=== PATIENT | female | born 1955 | race Hispanic/Latino ===

== ENCOUNTER 2019-02-02 02:00 | Emergency (ER) | payer OTHER ==
--- OUTSIDE RECORDS SUMMARY | 2019-02-02 02:02 | XMS REPORT ---
:1955 Author Organization eClinicalWorks Care Team Providers Name Role Phone Vania Rosado Provider Role Unavailable Allergies, Adverse Reactions, Alerts Substance Reaction Event Type N.K.D.A. Info Not Available Non Drug Allergy Problems Problem Type Condition Code Onset Dates Condition Status Problem Acquired hypothyroidism E03.9 Active Problem Essential hypertension I10 Active Assessment Encounter for general adult medical Z00.00 Active examination without abnormal findings Medications Medication Code Code Instructions Start End Status Dosage System Date Date Levothyroxine [facility] 77266972620 50 MCG Orally Active 1 tablet Sodium Once a day on an empty stomach in the morning Lisinopril [facility] 54116678002 2.5 MG Orally January 22, Active 1 tablet Once a day 2017 Results No Known Results Summary Purpose eClinicalWorks Submission
--- OUTSIDE RECORDS SUMMARY | 2019-02-02 02:02 | XMS REPORT ---
:1955 Author Organization eClinicalWorks Care Team Providers Name Role Phone Vania Rosado Provider Role Unavailable Allergies, Adverse Reactions, Alerts Substance Reaction Event Type N.K.D.A. Info Not Available Non Drug Allergy Problems Problem Type Condition Code Onset Dates Condition Status Problem Hypertension, unspecified type I10 Active Problem Essential hypertension I10 Active Problem Fatty liver K76.0 Active Assessment Essential hypertension I10 Active Assessment Fatty liver K76.0 Active Problem Acquired hypothyroidism E03.9 Active Medications Medication Code Code Instructions Start End Status Dosage System Date Date Levothyroxine [facility] 40314153693 50 MCG Orally Active 1 tablet Sodium Once a day on an empty stomach in the morning Olmesartan [facility] 62432695357 40 MG Orally Sep 23, Active 1 tablet Medoxomil Once a day 2018 Results No Known Results Summary Purpose eClinicalWorks Submission
--- OUTSIDE RECORDS SUMMARY | 2019-02-02 02:02 | XMS REPORT ---
:1955 Author Organization eClinicalWorks Care Team Providers Name Role Phone Vania Rosado Provider Role Unavailable Allergies, Adverse Reactions, Alerts Substance Reaction Event Type N.K.D.A. Info Not Available Non Drug Allergy Problems Problem Type Condition Code Onset Dates Condition Status Problem Acquired hypothyroidism E03.9 Active Problem Essential hypertension I10 Active Assessment Essential hypertension I10 Active Assessment Acquired hypothyroidism E03.9 Active Medications Medication Code Code Instructions Start End Status Dosage System Date Date Lisinopril [facility] 82614683622 2.5 MG Orally Inactive 1 tablet Once a day Olmesartan [place] 68389894294 20 MG Orally Sep 23, Active 1 tablet Medoxomil Once a day 2018 Levothyroxine [facility] 63109388260 50 MCG Orally Active 1 tablet Sodium Once a day on an empty stomach in the morning Results No Known Results Summary Purpose eClinicalWorks Submission
--- OUTSIDE RECORDS SUMMARY | 2019-02-02 02:02 | XMS REPORT ---
:1955 Author Organization eClinicalWorks Care Team Providers Name Role Phone Vania Rosado Provider Role Unavailable Allergies No Known Allergies Problems Problem Type Condition Code Onset Dates Condition Status Problem Acquired hypothyroidism E03.9 Active Problem Essential hypertension I10 Active Medications Medication Code Code Instructions Start End Status Dosage System Date Date Levothyroxine [facility] 12673515089 50 MCG Orally Active 1 tablet Sodium Once a day on an empty stomach in the morning Results No Known Results Summary Purpose eClinicalWorks Submission
--- OUTSIDE RECORDS SUMMARY | 2019-02-02 02:02 | XMS REPORT ---
:1955 Author Organization eClinicalWorks Care Team Providers Name Role Phone Vania Rosado Provider Role Unavailable Allergies, Adverse Reactions, Alerts Substance Reaction Event Type N.K.D.A. Info Not Available Non Drug Allergy Problems Problem Type Condition Code Onset Dates Condition Status Problem Acquired hypothyroidism E03.9 Active Problem Essential hypertension I10 Active Assessment Acquired hypothyroidism E03.9 Active Assessment Essential hypertension I10 Active Medications Medication Code Code Instructions Start End Status Dosage System Date Date Levothyroxine [facility] 55955501899 25 MCG Orally December 24, Active 1 tablet Sodium Once a day 2017 on an empty stomach in the morning Lisinopril ND 03387415084 2.5 MG Orally January 22, Active 1 tablet Once a day 2017 Results No Known Results Summary Purpose eClinicalWorks Submission
--- OUTSIDE RECORDS SUMMARY | 2019-02-02 02:02 | XMS REPORT ---
:1955 Author Organization eClinicalWorks Care Team Providers Name Role Phone Vania Rosado Provider Role Unavailable Allergies, Adverse Reactions, Alerts Substance Reaction Event Type N.K.D.A. Info Not Available Non Drug Allergy Problems Problem Type Condition Code Onset Dates Condition Status Assessment Other constipation K59.09 Active Assessment Hypertension, unspecified type I10 Active Assessment Acquired hypothyroidism E03.9 Active Assessment Need for hepatitis C screening test Z11.59 Active Problem Other constipation K59.09 Active Problem Hypertension, unspecified type I10 Active Problem Need for hepatitis C screening test Z11.59 Active Problem Acquired hypothyroidism E03.9 Active Problem Fatty liver K76.0 Active Problem Essential hypertension I10 Active Medications Medication Code Code Instructions Start End Status Dosage System Date Date Levothyroxine [facility] 23248719254 50 MCG Orally Active 1 tablet Sodium Once a day on an empty stomach in the morning Olmesartan [facility] 37316218625 40-12.5 MG November Active 1 tablet Medoxomil-HCTZ Orally Once a 2018 day Olmesartan [facility] 37253880119 40 MG Orally Sep 23, Active 1 tablet Medoxomil Once a day 2018 Results No Known Results Summary Purpose eClinicalWorks Submission
--- OUTSIDE RECORDS SUMMARY | 2019-02-02 02:02 | XMS REPORT ---
:1955 Author Organization eClinicalWorks Care Team Providers Name Role Phone Vania Rosado Provider Role Unavailable Allergies No Known Allergies Problems Problem Type Condition Code Onset Dates Condition Status Problem Acquired hypothyroidism E03.9 Active Problem Essential hypertension I10 Active Medications No Known Medications Results No Known Results Summary Purpose eClinicalWorks Submission
--- OUTSIDE RECORDS SUMMARY | 2019-02-02 02:03 | XMS REPORT ---
:1955 Author Organization eClinicalWorks Care Team Providers Name Role Phone Vania Rosado Provider Role Unavailable Allergies, Adverse Reactions, Alerts Substance Reaction Event Type N.K.D.A. Info Not Available Non Drug Allergy Problems Problem Type Condition Code Onset Dates Condition Status Assessment Acquired hypothyroidism E03.9 Active Assessment Hypertension, unspecified type I10 Active Assessment Reactive depression F32.9 Active Problem Other constipation K59.09 Active Problem Need for hepatitis C screening test Z11.59 Active Problem Reactive depression F32.9 Active Problem Essential hypertension I10 Active Problem Acquired hypothyroidism E03.9 Active Problem Fatty liver K76.0 Active Problem Hypertension, unspecified type I10 Active Medications Medication Code Code Instructions Start End Status Dosage System Date Date Sertraline HCl [facility] 81383173528 25 MG Orally January 20, Active 1 tablet Once a day 2018 Levothyroxine [facility] 86486529447 50 MCG Orally Active 1 tablet Sodium Once a day on an empty stomach in the morning Olmesartan [facility] 62668969623 40-12.5 MG Active 1 tablet Medoxomil-HCTZ Orally Once a day Results No Known Results Summary Purpose eClinicalWorks Submission
[2019-02-02 02:38] LABS: Absolute Lymphocytes (CBC) 2.9 K/uL (0.7-4.9); Basophils % 1.3 % (0-1.3); Eosinophils % 3.4 % (0-4.4); Hematocrit 38.4 % (36.0-45.0); MPV 8.8 fL (7.6-11.3); Monocytes % 5.7 % (3.3-12.3); RBC Red Blood Cell Count 4.24 M/uL (3.86-4.86)
[2019-02-02] MEDS ORDERED: ONDANSETRON 4 MG/2 ML VIAL ONE (02:44)
[2019-02-02 03:03] LABS: Potassium 3.6 mmol/L (3.5-5.1)
[2019-02-02] MEDS ORDERED: predniSONE 20 MG TAB ONE (03:38)
--- NOTE | 2019-02-02 03:51 | EDPHYS ---
Physician Documentation [facility] Name: Macey Shah Age: 63 yrs Sex: Female : 1955 Arrival Date: 02/02/2019 Time: 02:05 Bed 6 Private MD: ED Physician Wally Barth HPI: 02/02 04:07 This 63 yrs old Female presents to ER via Ambulatory with complaints of Rash. gs 04:07 The patient's rash thought to be caused by an unknown cause. The rash is located on the gs right leg and left leg. The rash can be described as macular, PETICHIAL. Onset: The symptoms/episode began/occurred 2 week(s) ago, and became worse. Associated signs and symptoms: Pertinent negatives: fever. Severity of symptoms: At their worst the symptoms were moderate in the emergency department the symptoms are unchanged. The patient has not experienced similar symptoms in the past. Historical: - Allergies: 02:37 No Known Allergies; bb - Home Meds: 02:37 olmesartan oral oral [Active]; thyroid med [Active]; bb - PMHx: 02:24 Hypertension; Hypothyroidism; bb - PSHx: 02:24 Hysterectomy; cyst removal from back; bb - Immunization history:: Adult Immunizations up to date. - Social history:: Smoking status: Patient/guardian denies using tobacco. - Ebola Screening: : No symptoms or risks identified at this time. ROS: 04:07 All other systems are negative. gs Exam: 04:07 Head/Face: Normocephalic, atraumatic. Eyes: Pupils equal round and reactive to light, gs extra-ocular motions intact. Lids and lashes normal. Conjunctiva and sclera are non-icteric and not injected. Cornea within normal limits. Periorbital areas with no swelling, redness, or edema. ENT: Nares patent. No nasal discharge, no septal abnormalities noted. Tympanic membranes are normal and external auditory canals are clear. Oropharynx with no redness, swelling, or masses, exudates, or evidence of obstruction, uvula midline. Mucous membranes moist. Neck: Trachea midline, no thyromegaly or masses palpated, and no cervical lymphadenopathy. Supple, full range of motion without nuchal rigidity, or vertebral point tenderness. No Meningismus. Chest/axilla: Normal chest wall appearance and motion. Nontender with no deformity. No lesions are appreciated. Cardiovascular: Regular rate and rhythm with a normal S1 and S2. No gallops, murmurs, or rubs. Normal PMI, no JVD. No pulse deficits. Respiratory: Lungs have equal breath sounds bilaterally, clear to auscultation and percussion. No rales, rhonchi or wheezes noted. No increased work of breathing, no retractions or nasal flaring. Abdomen/GI: Soft, non-tender, with normal bowel sounds. No distension or tympany. No guarding or rebound. No evidence of tenderness throughout. Back: No spinal tenderness. No costovertebral tenderness. Full range of motion. Neuro: Awake and alert, GCS 15, oriented to person, place, time, and situation. Cranial nerves II-XII grossly intact. Motor strength 5/5 in all extremities. Sensory grossly intact. Cerebellar exam normal. Normal gait. 04:07 Constitutional: The patient appears alert, awake. 04:07 Musculoskeletal/extremity: Pulses: are normal with no appreciated deficits, Sensation intact. 04:07 Skin: rash a moderate rash is noted, rash can be described as macular, PETICHIAL. Vital Signs: 02:24 BP 169 / 95; Pulse 69; Resp 18 S; Temp 98(O); Pulse Ox 96% on R/A; Weight 82.1 kg (R); bb Height 5 ft. 4 in. (162.56 cm) (R); Pain 0/10; 03:09 BP 161 / 87; Pulse 58; Resp 13; Pulse Ox 96% on R/A; tl2 04:16 BP 153 / 78; Pulse 55; Resp 13; Pulse Ox 95% on R/A; tl2 02:24 Body Mass Index 31.07 (82.10 kg, 162.56 cm) bb MDM: 02:15 Patient medically screened. gs 04:07 Differential diagnosis: VASCULITIS,ITP,TTP,DRUG RASH,NOT RMSF. Data reviewed: vital gs signs, nurses notes, lab test result(s). Counseling: I had a detailed discussion with the patient and/or guardian regarding: the historical points, exam findings, and any diagnostic results supporting the discharge/admit diagnosis, lab results, the need for outpatient follow up. Response to treatment: the patient's symptoms have mildly improved after treatment, and as a result, I will discharge patient. 02/02 02:17 Order name: CBC with Diff; Complete Time: 03:09 02/02 02:17 Order name: Basic Metabolic Panel; Complete Time: 03:09 02/02 02:22 Order name: EKG - Nurse/Tech; Complete Time: 02:31 Administered Medications: 02:33 Drug: Zofran 4 mg Route: IVP; Site: right antecubital; tl2 03:30 Follow up: Response: No adverse reaction; Nausea is decreased tl2 03:27 Drug: predniSONE 40 mg Route: PO; tl2 04:18 Follow up: Response: No adverse reaction tl2 04:07 CANCELLED (Physician Discretion): NS 0.9% 1000 ml IV at 1 bolus Per protocol; 1000 mL tl2 bolus Disposition: 02/02/19 03:50 Discharged to Home. Impression: Rash and other nonspecific skin eruption. - Condition is Stable. - Discharge Instructions: Rash, [id number]. - Prescriptions for Prednisone 20 mg Oral Tablet - take 1 tablet by ORAL route once daily for 5 days; 5 tablet. - Medication Reconciliation Form, Thank You Letter, Antibiotic Education, Prescription Opioid Use form. - Follow up: Private Physician; When: 1 - 2 days; Reason: Re-evaluation by your physician. Follow up: Jourdan Koroma MD; When: 2 - 3 days; Reason: Re-evaluation by your physician. Signatures: Dispatcher [employer] EDMS Nirali Narvaez RN RN bb Knox, Taylor, RN RN 2 Wally Barth MD MD Corrections: (The following items were deleted from the chart) 02:37 02:24 Allergies: No Known Allergies; bb bb 02:37 02:24 Home Meds: Unable to obtain; bb 04:07 04:01 NS 0.9% 1000 ml IV at 1 bolus Per protocol; 1000 mL bolus ordered. tl2 04:07 04:07 NS 0.9% 1000 ml IV at 1 bolus Per protocol; 1000 mL bolus ordered. tl2 tl2 04:17 04:07 Skin: rash can be described as gs gs 04:18 03:50 02/02/2019 03:50 Discharged to Home. Impression: Rash and other nonspecific skin tl2 eruption. Condition is Stable. Forms are Medication Reconciliation Form, Thank You Letter, Antibiotic Education, Prescription Opioid Use. Follow up: Private Physician; When: 1 - 2 days; Reason: Re-evaluation by your physician. Follow up: Jourdan Koroma; When: 2 - 3 days; Reason: Re-evaluation by your physician. gs
--- NOTE | 2019-02-02 03:51 | ER ---
Nurse's Notes [facility] Name: Macey Shah Age: 63 yrs Sex: Female : 1955 Arrival Date: 02/02/2019 Time: 02:05 Bed 6 Private MD: Diagnosis: Rash and other nonspecific skin eruption Presentation: 02/02 02:20 Presenting complaint: Patient states: she had a rash on her feet which started approx 2 bb weeks ago she thought it was poison sherine and has been using a poison sherine scrub along with Benadryl but now the rash has spread up her legs. Tonight on the way to the ED she started having tingling in her left arm and her throat is feeling scratchy and she feels nauseous. Transition of care: patient was not received from another setting of care. Onset of symptoms was February 02, 2019. Risk Assessment: Do you want to hurt yourself or someone else? Patient reports no desire to harm self or others. Initial Sepsis Screen: Does the patient meet any 2 criteria? No. Patient's initial sepsis screen is negative. Does the patient have a suspected source of infection? No. Patient's initial sepsis screen is negative. Care prior to arrival: None. 02:20 Method Of Arrival: Ambulatory bb 02:20 Acuity: IBETH 3 bb Historical: - Allergies: 02:37 No Known Allergies; bb - Home Meds: 02:37 olmesartan oral oral [Active]; thyroid med [Active]; bb - PMHx: 02:24 Hypertension; Hypothyroidism; bb - PSHx: 02:24 Hysterectomy; cyst removal from back; bb - Immunization history:: Adult Immunizations up to date. - Social history:: Smoking status: Patient/guardian denies using tobacco. - Ebola Screening: : No symptoms or risks identified at this time. Screenin:31 Abuse screen: Denies threats or abuse. Nutritional screening: No deficits noted. tl2 Tuberculosis screening: No symptoms or risk factors identified. Fall Risk None identified. Assessment: 02:31 General: Appears in no apparent distress. uncomfortable, Behavior is cooperative, tl2 appropriate for age, anxious. General: Behavior is. Pain: Denies pain. Neuro: Level of Consciousness is awake, alert, obeys commands, Oriented to person, place, time, situation. Cardiovascular: Denies chest pain. Respiratory: Airway is patent Respiratory effort is even, unlabored, Respiratory pattern is regular, symmetrical. GI: Reports nausea. : No signs and/or symptoms were reported regarding the genitourinary system. Derm: Rash noted that is red, flat red spots, possibly vascular. 04:16 Reassessment: Patient appears in no apparent distress at this time. Patient and/or tl2 family updated on plan of care and expected duration. Pain level reassessed. Patient is alert, oriented x 3, equal unlabored respirations, skin warm/dry/pink. pt verbalized understanding of discharge instructions, need for follow up and prescription usage Patient states feeling better. Vital Signs: 02:24 BP 169 / 95; Pulse 69; Resp 18 S; Temp 98(O); Pulse Ox 96% on R/A; Weight 82.1 kg (R); bb Height 5 ft. 4 in. (162.56 cm) (R); Pain 0/10; 03:09 BP 161 / 87; Pulse 58; Resp 13; Pulse Ox 96% on R/A; tl2 04:16 BP 153 / 78; Pulse 55; Resp 13; Pulse Ox 95% on R/A; tl2 02:24 Body Mass Index 31.07 (82.10 kg, 162.56 cm) ED Course: 02:05 Patient arrived in ED. do 02:06 Wlaly Barth MD is Attending Physician. 02:23 Triage completed. bb 02:23 Dejuan Skinner, RN is Primary Nurse. la1 02:24 Arm band placed on Patient placed in an exam room, on a stretcher, on pulse oximetry. bb Family accompanied patient. 02:31 Patient has correct armband on for positive identification. Bed in low position. Call tl2 light in reach. Side rails up X 1. Adult w/ patient. 02:31 CBC with Diff Sent. tl2 02:31 Basic Metabolic Panel Sent. tl2 02:31 Initial lab(s) drawn, by me, sent to lab. Inserted saline lock: 22 gauge in right tl2 antecubital area, using aseptic technique. Blood collected. 02:31 EKG done, by residential gas heat technician. reviewed by Wally Barth MD. tl2 03:43 Primary Nurse role handed off by Dejuan Skinner, AUGUSTINE tl2 03:43 Gongora, Dotty, RN is Primary Nurse. tl2 03:49 Jourdan Koroma MD is Referral Physician. gs 04:16 No provider procedures requiring assistance completed. IV discontinued, intact, tl2 bleeding controlled, No redness/swelling at site. Pressure dressing applied. Administered Medications: 02:33 Drug: Zofran 4 mg Route: IVP; Site: right antecubital; tl2 03:30 Follow up: Response: No adverse reaction; Nausea is decreased tl2 03:27 Drug: predniSONE 40 mg Route: PO; tl2 04:18 Follow up: Response: No adverse reaction tl2 04:07 CANCELLED (Physician Discretion): NS 0.9% 1000 ml IV at 1 bolus Per protocol; 1000 mL tl2 bolus Outcome: 03:50 Discharge ordered by . gs 04:16 Discharged to home ambulatory, with family. tl2 04:16 Condition: stable 04:16 Discharge instructions given to patient, Instructed on discharge instructions, follow up and referral plans. medication usage, Demonstrated understanding of instructions, follow-up care, medications, Prescriptions given X 1. 04:18 Patient left the ED. tl2 Signatures: Nirali Narvaez RN RN Dejuan Wheat RN RN la1 April Landon Taylor, RN RN tl2 Wally Barth MD MD Corrections: (The following items were deleted from the chart) 02:37 02:24 Allergies: No Known Allergies; tori valle 02:37 02:24 Home Meds: Unable to obtain; tori valle
[2019-02-02] MEDS ORDERED: NA CHLORIDE 0.9% 1,000 ML ONE (04:21)
--- NOTE | 2019-02-02 19:44 | EKG ---
Test Date: 2019-02-02 Test Time: 02:31:10 Toxicology Supervisor: GABRILE MEASUREMENT RESULTS: Intervals: Rate: 59 [place]: 188 QRSD: 86 QT: 448 QTc: 443 [place]: P: 28 [place]: 188 QRS: -5 T: -62 INTERPRETIVE STATEMENTS: Sinus bradycardia Nonspecific ST and T wave abnormality Abnormal ECG Compared to ECG 01/12/2016 08:20:14 ST (T wave) deviation now present Sinus rhythm no longer present T-wave abnormality no longer present Possible ischemia no longer present Electronically Signed On 02-02-19 19:40:39 CDT by Eugene Guajardo
== END 2019-02-02 04:18 | disposition home or self-care (01) ==
LOC: ER 02:00
DX: R21 Rash and other nonspecific skin eruption (principal); I10 Essential (primary) hypertension; E03.9 Hypothyroidism, unspecified
CPT/HCPCS: 36415; 80048; 85025; 93005; 96374; 99284; J2405; J7030; J7512

== ENCOUNTER 2024-06-25 11:52 | Inpatient (IN) | payer OTHER ==
[2024-06-25] MEDS ORDERED: ONDANSETRON 4 MG/2 ML VIAL ONE (12:06)
[2024-06-25] MEDS ORDERED: MORPHINE 2 MG/ML SYR ONE ×3 (12:06→16:33)
[2024-06-25] MEDS ORDERED: NA CHLORIDE 0.9% 1,000 ML ONE ×3 (12:06→20:02)
[2024-06-25 12:26] LABS: Absolute Eosinophils 0.3 K/uL (0-0.5); Absolute Lymphocytes (CBC) 2.8 K/uL (0.7-4.9); Absolute Monocytes 0.5 K/uL (0.1-1.3); Absolute Neutrophil 7.3 K/uL (1.8-8.0); Basophils % 0.3 % (0-1.3); Eosinophils % 2.4 % (0-4.4); Hematocrit 43.5 % (36.0-45.0); Hemoglobin 14.5 g/dL (12.0-15.0); Lymphocytes % 25.3 % (15.3-44.8); MCH 30.4 pg (27.0-35.0); MCHC 33.3 g/dL (32.0-36.0); MCV 91.4 fL (80-100); MPV 8.6 fL (7.6-11.3); Monocytes % 4.5 % (3.3-12.3); Neutrophils % 67.5 % (41.7-73.7); Platelets 296 thou/uL (152-406); RBC Red Blood Cell Count 4.76 M/uL (3.86-4.86); Red Cell Distribution Width 13.8 % (12.1-15.2)
[2024-06-25 12:42] LABS: Albumin 3.7 g/dL (3.4-5.0); Albumin/Globulin Ratio 0.9 (1.1-1.8); Anion Gap 9.3 mEq/L (5.0-15.0); Bilirubin Total 0.7 mg/dL (0.2-1.0); Globulin 4.2 g/dL (2.3-3.5); Potassium 3.3 mEq/L (3.5-5.1); Protein, Total 7.9 g/dL (6.4-8.2)
[2024-06-25] MEDS ORDERED: POTASSIUM 25 MEQ EFFERV TAB ONE (13:46)
[2024-06-25] MEDS ORDERED: CIPROFLOXACIN 400mg IV 400 MG/200 ML BAG IV ONE (13:47)
[2024-06-25 13:50] LABS: Specific Gravity 1.005 (1.005-1.030); Sqamous Epithelial <5 /HPF (None Seen); Urine Bacteria <20 /HPF (<20); Urine Bilirubin NEGATIVE (Negative); Urine Blood Negative (Negative); Urine Clarity Turbid (Clear); Urine Color Colorless (Yellow); Urine Culture Reflex Order NOT NEEDED; Urine Glucose NEGATIVE (Negative); Urine Ketones NEGATIVE (Negative); Urine Microscopic Reflex YN ORDER UMIC; Urine Nitrite NEGATIVE (Negative); Urine Protein NEGATIVE (Negative); Urine RBC None Seen /HPF (None Seen); Urine Urobilinogen Normal (Normal); Urine WBC <5 /HPF (<5); Urine pH 6.5 (5.0-7.0)
--- NOTE | 2024-06-25 13:51 | RAD REPORT ---
EXAMINATION: CT ABDOMEN AND PELVIS WITH CONTRAST CLINICAL INDICATION: ABD PAIN TECHNIQUE: CT abdomen and pelvis was performed, after the administration of IV contrast, as per [facility] protocol. Axial, sagittal and coronal reconstructions were obtained. One or more of the following dose reduction techniques were used: Automated exposure control, adjustment of the mA and k V according to patient size, and iterative reconstruction. Unless otherwise specified, incidental findings do not require dedicated imaging follow-up. COMPARISON: No prior exam. FINDINGS: LOWER CHEST: The visualized lung bases are clear. LIVER: Mild fatty liver is present. No focal lesion or biliary dilatation is seen. Cholelithiasis. SPLEEN: Normal size. No focal lesion. PANCREAS: No mass, ductal dilation, or kriss-pancreatic fluid. ADRENALS: Normal; no mass. KIDNEYS: Normal size and contour. No hydronephrosis. GASTROINTESTINAL TRACT: No evidence of free air, significant intra-abdominal free fluid, bowel obstru ction or abscess. There is a moderately thickened appearance particularly to the terminal ileum. Small lymph node is seen in the region. Mild free fluid also seen in the right lower quadrant. Sigmoi d diverticulosis coli is present APPENDIX: Normal appendix. LYMPH NODES: No lymphadenopathy. MUSCULOSKELETAL: No acute or suspicious osseous abnormality. ADDITIONAL FINDINGS: Small amount of pelvic free fluid. IMPRESSION: There is a moderately thickened and inflamed appearance to the ileum including the terminal ileum. Th is most likely represents enteritis or inflammatory bowel disease. Sigmoid diverticulosis coli without diverticulitis. Mild free fluid in the pelvis. Cholelithiasis.
--- NOTE | 2024-06-25 14:10 | ER ---
Nurse's Notes [facility] Name: Macey Shah Age: 69 yrs Sex: Female : 1955 Arrival Date: 06/25/2024 Time: 11:52 Bed 7 Private MD: Diagnosis: Other viral enteritis-ILEUM , CECUM;Abdominal tenderness;Diarrhea, unspecified Presentation: 06/25 12:06 Chief complaint: Patient states: diarrhea since Saturday. Today abdominal cramping has tm6 worsened, 10/10 pain. Also with nausea, no vomiting. Coronavirus screen: Client denies travel out of the [place] in the last 14 days. Ebola Screen: Patient negative for fever greater than or equal to 101.5 degrees Fahrenheit, and additional compatible Ebola Virus Disease symptoms Patient denies exposure to infectious person. Patient denies travel to an Ebola-affected area in the 21 days before illness onset. No symptoms or risks identified at this time. Initial Sepsis Screen: Does the patient meet any 2 criteria? No. Patient's initial sepsis screen is negative. Does the patient have a suspected source of infection? No. Patient's initial sepsis screen is negative. Risk Assessment: Do you want to hurt yourself or someone else? Patient reports no desire to harm self or others. Onset of symptoms was June 23, 2024. 12:06 Method Of Arrival: Ambulatory tm6 12:06 Acuity: IBETH 3 tm6 Triage Assessment: 12:09 General: Appears uncomfortable, Behavior is calm, cooperative. Pain: Complains of pain tm6 in abdomen Pain currently is 10 out of 10 on a pain scale. Quality of pain is described as crampy, Pain began 2-3 days ago. EENT: No signs and/or symptoms were reported regarding the EENT system. Neuro: Level of Consciousness is awake, alert, obeys commands, Oriented to person, place, time, situation. Cardiovascular: Patient's skin is warm and dry. Respiratory: Airway is patent Respiratory effort is even, unlabored, Respiratory pattern is regular, symmetrical. GI: Abdomen is flat, non-distended, Reports lower abdominal pain, upper abdominal pain, cramping, diarrhea. : No signs and/or symptoms were reported regarding the genitourinary system. Derm: No signs and/or symptoms reported regarding the dermatologic system. Musculoskeletal: No signs and/or symptoms reported regarding the musculoskeletal system. Historical: - Allergies: 12:09 No Known Allergies; tm6 - PMHx: 12:09 Hypertension; Hypothyroidism; tm6 - PSHx: 12:09 Total abdominal hysterectomy; tm6 - Immunization history:: Client reports receiving the 2nd dose of the Covid vaccine. - Infectious Disease History:: Denies. - Social history:: Smoking status: Patient denies any tobacco usage or history of. Screenin:22 [facility] ED Fall Risk Assessment (Adult) History of falling in the last 3 months, ph including since admission No falls in past 3 months (0 pts) Confusion or Disorientation No (0 pts) Intoxicated or Sedated No (0 pts) Impaired Gait No (0 pts) Mobility Assist Device Used No (0 pt) Altered Elimination No (0 pt) Score/Fall Risk Level 0 - 2 = Low Risk Oriented to surroundings, Maintained a safe environment, Hourly rounding (assess needs \T\ fall precautionary measures) done. Abuse screen: Denies threats or abuse. Denies injuries from another. Nutritional screening: No deficits noted. Tuberculosis screening: No symptoms or risk factors identified. Assessment: 12:21 General: Appears in no apparent distress. uncomfortable, well groomed, Behavior is ph calm, cooperative, appropriate for age. Pain: Complains of pain in abdomen. Neuro: Level of Consciousness is awake, alert, obeys commands, Oriented to person, place, time, situation. Cardiovascular: Capillary refill < 3 seconds in bilateral fingers Patient's skin is warm and dry. Respiratory: Airway is patent Respiratory effort is even, unlabored, Respiratory pattern is regular, symmetrical. GI: Reports lower abdominal pain, upper abdominal pain, diarrhea, nausea. : No signs and/or symptoms were reported regarding the genitourinary system. Derm: Skin is pink, warm \T\ dry. 14:49 Reassessment: Patient appears in no apparent distress at this time. Patient and/or ph family updated on plan of care and expected duration. Pain level reassessed. Patient is alert, oriented x 3, equal unlabored respirations, skin warm/dry/pink. Vital Signs: 12:06 BP 165 / 87; Pulse 77; Resp 19; Temp 97.8(O); Pulse Ox 96% on R/A; MAP 110 mmHg; Weight tm6 84.82 kg; Height 5 ft. 4 in. ; Pain 10/10; 13:54 BP 138 / 76; Pulse 67; Resp 18; Pulse Ox 95% on R/A; ph 14:49 BP 132 / 72; Pulse 59; Resp 18; Pulse Ox 95% on R/A; ph 16:00 BP 139 / 88; Pulse 58; Resp 18; Temp 97.5; Pulse Ox 95% on R/A; ph 19:58 BP 147 / 85; Pulse 59; Resp 16 S; Pulse Ox 96% on R/A; lg3 12:06 Body Mass Index 32.10 (84.82 kg, 162.56 cm) tm6 12:06 Pain Scale: Adult tm6 ED Course: 11:55 Patient arrived in ED. mr 11:57 Catalino Phillips MD is Attending Physician. doris 12:04 Arianna Kessler RN is Primary Nurse. ph 12:04 Arm band placed on Patient placed in an exam room, on a stretcher, on pulse oximetry. ph 12:09 Triage completed. tm6 12:21 Lipase Sent. ph 12:21 CMP Sent. ph 12:21 CBC with Diff Sent. ph 12:21 Initial lab(s) drawn, by vt, sent to lab. Inserted saline lock: 20 gauge in right ph antecubital area, using aseptic technique. Blood collected. Flushed with 10 mL NS. 12:23 Patient has correct armband on for positive identification. Bed in low position. Call ph light in reach. Side rails up X 1. Pulse ox on. NIBP on. Door closed. Noise minimized. Warm blanket given. Pillow given. 13:33 Urinalysis w/ reflexes Sent. ph 13:39 CT Abd/Pelvis - IV Contrast Only In Process Unspecified. EDMS 13:54 No provider procedures requiring assistance completed. ph 14:06 Rodney Morales MD is Hospitalizing Provider. doris 16:30 Patient admitted, IV remains in place. ph Administered Medications: 12:20 Drug: morphine IVP or IV 2 mg IVP once over 4 mins Route: IVP; Infused Over: 4 mins; ph Site: right antecubital; 12:40 Follow up: Response: No adverse reaction; Pain is decreased ph 12:21 Drug: Ondansetron IVP 4 mg IVP once; over 2 minutes Route: IVP; Site: right antecubital;ph 13:53 Follow up: Response: No adverse reaction ph 12:21 Drug: NS 0.9% IV 1000 ml IV at 1 bolus Per protocol; to be given as a bolus over 60 ph minutes Route: IV; Rate: 1 bolus; Site: right antecubital; 13:30 Follow up: Response: No adverse reaction; IV Status: Completed infusion; IV Intake: ph 1000ml 13:52 Drug: morphine IVP or IV 2 mg IVP once over 4 mins Route: IVP; Infused Over: 4 mins; ph Site: right antecubital; 14:15 Follow up: Response: No adverse reaction; Pain is decreased; RASS: Alert and Calm (0) ph 13:53 Drug: Potassium PO Effervescent Tablet 50 mEq PO once; dissolve in 4 ounces of water or ph juice Route: PO; 14:48 Follow up: Response: No adverse reaction ph 13:53 Drug: Ciprofloxacin IVPB 400 mg 200 ml IVPB once over 60 mins Volume: 200 ml; Route: ph IVPB; Infused Over: 60 mins; Site: right antecubital; 15:09 Follow up: Response: No adverse reaction; IV Status: Completed infusion; IV Intake: ph 100ml 14:48 Drug: metroNIDAZOLE IVPB 500 mg 100 ml IVPB at 200 ml/hr once over 30 mins Volume: 100 ph ml; Route: IVPB; Rate: 200 ml/hr; Infused Over: 30 mins; Site: right antecubital; 15:20 Follow up: Response: No adverse reaction; IV Status: Completed infusion; IV Intake: ph 100ml 14:48 Drug: NS 0.9% with KCl IV 20 mEq/L 1000 ml IV at 125 ml/hr continuous Route: IV; Rate: ph 125 ml/hr; Site: right antecubital; 14:48 Follow up: Response: No adverse reaction; IV Status: Infusion continued upon admission ph Medication: 12:23 VIS not applicable for this client. ph Intake: 13:30 IV: 1000ml; Total: 1000ml. ph 15:09 IV: 100ml; Total: 1100ml. ph 15:20 IV: 100ml; Total: 1200ml. ph Outcome: 14:10 Decision to Hospitalize by Provider. doris 16:30 Admitted to ER Hold. Please see [facility] for further documentation. ph 16:30 Condition: stable 16:30 Instructed on the need for admit, 20:54 Admitted to Med/surg accompanied by tech, via stretcher, room 203, Report called to lgCory Blanco 20:54 Condition: stable 20:54 Instructed on the need for admit, Demonstrated understanding of instructions, 20:55 Patient left the ED. lg3 Signatures: Dispatcher [employer] EDMS Catalino Phillips MD MD cha Rivera, Kiki, Reg Reg mr Arianna Kessler, RN RN Able, AUGUSTINE Nicholson RN 3 Reji Juan RN RN tm6
--- NOTE | 2024-06-25 14:10 | EDPHYS ---
Physician Documentation [facility] Name: Macey Shah Age: 69 yrs Sex: Female : 1955 Arrival Date: 06/25/2024 Time: 11:52 Bed 7 Private MD: OLIVE Physician Catalino Phillips HPI: 06/25 13:34 This 69 yrs old Female presents to ER via Ambulatory with complaints of doris Diarrhea. 13:34 The patient presents to the emergency department with diarrhea, that is continuous, doris abdominal pain. Onset: The symptoms/episode began/occurred 2 day(s) ago. Possible causes: unknown. The symptoms are aggravated by nothing. The symptoms are alleviated by nothing. Associated signs and symptoms: Pertinent positives: abdominal pain. Severity of symptoms: At their worst the symptoms were moderate in the emergency department the symptoms are unchanged. The patient has not experienced similar symptoms in the past. Historical: - Allergies: 12:09 No Known Allergies; tm6 - PMHx: 12:09 Hypertension; Hypothyroidism; tm6 - PSHx: 12:09 Total abdominal hysterectomy; tm6 - Immunization history:: Client reports receiving the 2nd dose of the Covid vaccine. - Infectious Disease History:: Denies. - Social history:: Smoking status: Patient denies any tobacco usage or history of. ROS: 13:35 Constitutional: Negative for fever, chills, and weight loss, Eyes: Negative for injury, doris pain, redness, and discharge, ENT: Negative for injury, pain, and discharge, Neck: Negative for injury, pain, and swelling, Cardiovascular: Negative for chest pain, palpitations, and edema, Respiratory: Negative for shortness of breath, cough, wheezing, and pleuritic chest pain, Back: Negative for injury and pain, : Negative for injury, bleeding, discharge, and swelling, MS/Extremity: Negative for injury and deformity, Skin: Negative for injury, rash, and discoloration, Neuro: Negative for headache, weakness, numbness, tingling, and seizure, Psych: Negative for depression, anxiety, suicide ideation, homicidal ideation, and hallucinations, Allergy/Immunology: Negative for hives, rash, and allergies, Endocrine: Negative for neck swelling, polydipsia, polyuria, polyphagia, and marked weight changes, Hematologic/Lymphatic: Negative for swollen nodes, abnormal bleeding, and unusual bruising, 13:35 Abdomen/GI: Positive for abdominal pain, of the right upper quadrant, left upper quadrant, right lower quadrant and left lower quadrant, Exam: 13:35 Constitutional: This is a well developed, well nourished patient who is awake, alert, doris and in no acute distress. Head/Face: Normocephalic, atraumatic. Eyes: Pupils equal round and reactive to light, extra-ocular motions intact. Lids and lashes normal. Conjunctiva and sclera are non-icteric and not injected. Cornea within normal limits. Periorbital areas with no swelling, redness, or edema. ENT: Nares patent. No nasal discharge, no septal abnormalities noted. Tympanic membranes are normal and external auditory canals are clear. Oropharynx with no redness, swelling, or masses, exudates, or evidence of obstruction, uvula midline. Mucous membranes moist. Neck: Trachea midline, no thyromegaly or masses palpated, and no cervical lymphadenopathy. Supple, full range of motion without nuchal rigidity, or vertebral point tenderness. No Meningismus. Chest/axilla: Normal chest wall appearance and motion. Nontender with no deformity. No lesions are appreciated. Cardiovascular: Regular rate and rhythm with a normal S1 and S2. No gallops, murmurs, or rubs. Normal PMI, no JVD. No pulse deficits. Respiratory: Lungs have equal breath sounds bilaterally, clear to auscultation and percussion. No rales, rhonchi or wheezes noted. No increased work of breathing, no retractions or nasal flaring. Back: No spinal tenderness. No costovertebral tenderness. Full range of motion. Female : Normal external genitalia. Skin: Warm, dry with normal turgor. Normal color with no rashes, no lesions, and no evidence of cellulitis. MS/ Extremity: Pulses equal, no cyanosis. Neurovascular intact. Full, normal range of motion. Neuro: Awake and alert, GCS 15, oriented to person, place, time, and situation. Cranial nerves II-XII grossly intact. Motor strength 5/5 in all extremities. Sensory grossly intact. Cerebellar exam normal. Normal gait. Psych: Awake, alert, with orientation to person, place and time. Behavior, mood, and affect are within normal limits. 13:35 Abdomen/GI: Inspection: obese Bowel sounds: normal, Palpation: moderate abdominal tenderness, in the right upper quadrant, right lower quadrant and left lower quadrant, Liver: no appreciated palpable abnormalities, Hernia: not appreciated, Vital Signs: 12:06 BP 165 / 87; Pulse 77; Resp 19; Temp 97.8(O); Pulse Ox 96% on R/A; MAP 110 mmHg; Weight tm6 84.82 kg; Height 5 ft. 4 in. ; Pain 10/10; 13:54 BP 138 / 76; Pulse 67; Resp 18; Pulse Ox 95% on R/A; ph 14:49 BP 132 / 72; Pulse 59; Resp 18; Pulse Ox 95% on R/A; ph 16:00 BP 139 / 88; Pulse 58; Resp 18; Temp 97.5; Pulse Ox 95% on R/A; ph 19:58 BP 147 / 85; Pulse 59; Resp 16 S; Pulse Ox 96% on R/A; lg3 12:06 Body Mass Index 32.10 (84.82 kg, 162.56 cm) tm6 12:06 Pain Scale: Adult tm6 MDM: 11:57 Medical Screening Exam initiated doris 13:36 Differential diagnosis: Nonspecific abd pain, appendicitis, diverticulitis, viral doris gastroenteritis, gastroenteritis. Data reviewed: vital signs, nurses notes, lab test result(s), radiologic studies. Consideration of Admission/Observation Patient was admitted/placed on observation. Escalation of care including admission/observation considered. I considered the following discharge prescriptions or medication management in the emergency department Medications were administered in the Emergency Department. See MAR. Independent interpretation of the following test(s) in the Emergency Department CT Scan: My interpretation is CT ABD / PEL. Test considered but Not performed: EKG: NO EKG. Historians other than the Patient: Daughter/Son: SON WELL INFORMED. Care significantly affected by the following chronic conditions: Hypertension, Obesity. Counseling: I had a detailed discussion with the patient and/or guardian regarding the historical points, exam findings, and any diagnostic results supporting the discharge/admit diagnosis, lab results, radiology results. 06/25 11:58 Order name: CBC with Diff; Complete Time: 12:55 [facility] 06/25 11:58 Order name: CMP; Complete Time: 12:55 [facility] 06/25 11:58 Order name: Lipase; Complete Time: 12:55 [facility] 06/25 11:58 Order name: Urinalysis w/ reflexes; Complete Time: 13:58 [facility] 06/25 11:58 Order name: Stool Culture [facility] 06/25 15:15 Order name: CDIFF 06/25 11:58 Order name: CT Abd/Pelvis - IV Contrast Only; Complete Time: 13:58 [facility] 06/25 11:58 Order name: IV Saline Lock; Complete Time: 12:21 [facility] 06/25 11:58 Order name: Labs collected and sent; Complete Time: 12:21 [facility] Administered Medications: 12:20 Drug: morphine IVP or IV 2 mg IVP once over 4 mins Route: IVP; Infused Over: 4 mins; ph Site: right antecubital; 12:40 Follow up: Response: No adverse reaction; Pain is decreased ph 12:21 Drug: Ondansetron IVP 4 mg IVP once; over 2 minutes Route: IVP; Site: right antecubital;ph 13:53 Follow up: Response: No adverse reaction ph 12:21 Drug: NS 0.9% IV 1000 ml IV at 1 bolus Per protocol; to be given as a bolus over 60 ph minutes Route: IV; Rate: 1 bolus; Site: right antecubital; 13:30 Follow up: Response: No adverse reaction; IV Status: Completed infusion; IV Intake: ph 1000ml 13:52 Drug: morphine IVP or IV 2 mg IVP once over 4 mins Route: IVP; Infused Over: 4 mins; ph Site: right antecubital; 14:15 Follow up: Response: No adverse reaction; Pain is decreased; RASS: Alert and Calm (0) ph 13:53 Drug: Potassium PO Effervescent Tablet 50 mEq PO once; dissolve in 4 ounces of water or ph juice Route: PO; 14:48 Follow up: Response: No adverse reaction ph 13:53 Drug: Ciprofloxacin IVPB 400 mg 200 ml IVPB once over 60 mins Volume: 200 ml; Route: ph IVPB; Infused Over: 60 mins; Site: right antecubital; 15:09 Follow up: Response: No adverse reaction; IV Status: Completed infusion; IV Intake: ph 100ml 14:48 Drug: metroNIDAZOLE IVPB 500 mg 100 ml IVPB at 200 ml/hr once over 30 mins Volume: 100 ph ml; Route: IVPB; Rate: 200 ml/hr; Infused Over: 30 mins; Site: right antecubital; 15:20 Follow up: Response: No adverse reaction; IV Status: Completed infusion; IV Intake: ph 100ml 14:48 Drug: NS 0.9% with KCl IV 20 mEq/L 1000 ml IV at 125 ml/hr continuous Route: IV; Rate: ph 125 ml/hr; Site: right antecubital; 14:48 Follow up: Response: No adverse reaction; IV Status: Infusion continued upon admission ph Disposition Summary: 06/25/24 14:10 Hospitalization Ordered Notes: Hospitalization Status: Inpatient Admission doris Provider: Rodney Morales cha Location: Telemetry/MedSurg (Inpatient) doris Condition: Fair doris Problem: new doris Symptoms: have improved doris Bed/Room Type: Standard [facility] Room Assignment: 203(06/25/24 19:25) Diagnosis - Other viral enteritis - ILEUM , CECUM doris - Abdominal tenderness doris - Diarrhea, unspecified doris Forms: - Medication Reconciliation Form doris - SBAR form doris - Leadership Thank You Letter [facility] Signatures: Dispatcher [employer] EDMS Catalino Phillips MD MD cha Hall, Patricia, RN RN Mary Sam RN RN Reji Juan RN RN tm6 Corrections: (The following items were deleted from the chart) 11:59 11:59 CBC+H.LAB.BRZ ordered. EDMS EDMS 11:59 11:59 COMPREHENSIVE METABOLIC PANEL+C.LAB.BRZ ordered. EDMS EDMS 11:59 11:59 LIPASE+C.LAB.BRZ ordered. EDMS EDMS 11:59 11:59 Urinalysis+U.LAB.BRZ ordered. EDMS EDMS 11:59 11:59 Stool Culture+BA.LAB.BRZ ordered. EDIN EDMS 19:25 14:10 doris cg
[2024-06-25] MEDS ORDERED: NS KCL 20MEQ 1,000 ML IV ONE (14:27)
[2024-06-25] MEDS ORDERED: METRONIDAZOLE 500mg IVPB 500 MG/100 ML BAG IV ONE (14:27)
[2024-06-25] MEDS: NA CHLORIDE 0.9% 1,000 ML IV SCH (16:26)
[2024-06-25] MEDS ORDERED: ONDANSETRON 4 MG/2 ML VIAL IV PRN (16:26)
[2024-06-25] MEDS: MORPHINE 2 MG/ML SYR IV PRN (16:41)
[2024-06-25] MEDS: METRONIDAZOLE 500mg IVPB 500 MG/100 ML BAG IV SCH (17:00)
--- NOTE | 2024-06-25 17:23 | P.HP ---
Certification for Inpatient Patient admitted to: Inpatient With expected LOS: >2 Midnights Patient will require the following post-hospital care: None Practitioner: I am a practitioner with admitting privileges, knowledge of patient current condition, hospital course, and medical plan of care. Services: Services provided to patient in accordance with Admission requirements found in Title 42 Section 412.3 of the Code of Federal Regulations Patient History Date of Service: 06/25/24 Reason for admission: Ileitis History of Present Illness: 69-year-old otherwise healthy female presented to the emergency department with chief complaint of abdominal pain, diarrhea. Her symptoms started 2 days ago, she has had around 10 episodes of diarrhea daily for the last 2 days, denies any nausea or vomiting. She has been having generalized abdominal pain as well. Patient was evaluated in the emergency department her labs are significant for white blood cell count of 10.[address] showed moderately thickened and inflamed appearance of the ileum including the terminal ileum. This most likely represent enteritis or inflammatory bowel disease. Sigmoid diverticulosis without diverticulitis. ED prior wishes to admit patient for further evaluation and management. Allergies No Known Allergies Allergy (Verified 01/12/16 08:10) Home Medications: Cholecalciferol (Vitamin D3) [Vitamin D] 1,000 unit PO DAILY 01/12/16 - Past Medical/Surgical History -: None -: Hysterectomy Psychosocial/ Personal History: Lives at home with her son - Family History Mother -: Cancer - Social History Smoking Status: Never smoker Place of Residence: Home Review of Systems 10-point ROS is otherwise unremarkable Gastrointestinal: Abdominal Pain, Diarrhea Physical Examination - Vital Signs Respirations: 18 Pulse Ox (%): 99 - Physical Exam General: Alert, In no apparent distress, Oriented x3 HEENT: Atraumatic, PERRLA, Mucous membr. moist/pink Neck: Supple, 2+ carotid pulse no bruit, No LAD Respiratory: Clear to auscultation bilaterally, Normal air movement Cardiovascular: Regular rate/rhythm, Normal S1 S2 Gastrointestinal: Normal bowel sounds, No tenderness Musculoskeletal: No tenderness Integumentary: No rashes Neurological: Normal speech, Normal strength at 5/5 x4 extr, Normal tone, Normal affect - Studies Laboratory Data (last 24 hrs) 06/25/24 06/25/24 12:15 12:15 WBC 10.90 Hgb 14.5 Hct 43.5 Plt Count 296 Sodium 137 Potassium 3.3 L BUN 13 Creatinine 0.96 Glucose 111 H Total Bilirubin 0.7 AST 13 L ALT 26 Alkaline Phosphatase 87 Lipase 25 Assessment and Plan - Plan Assessment: Ileitis/abdominal tenderness Diarrhea Hypokalemia Plan: Ileitis/abdominal tenderness Diarrhea Continue antibiotics Cipro/Flagyl Continue IV fluids Needed pain medications and antiemetics Stool culture, C. difficile test ordered Hypokalemia Protocols in place DVT PPX: Lovenox Code status: Full Discharge Plan: Home Plan to discharge in: 48 Hours - Advance Directives Does patient have a Living Will: No Does patient have a Durable POA for Healthcare: No - Code Status/Comfort Care Code Status Assessed: Yes (Full code) Critical Care: No Time Spent Managing Pts Care (In Minutes): 58
[2024-06-25] MEDS ORDERED: ENOXAPARIN 40 MG/0.4 ML SQ ONE (19:52)
[2024-06-25] MEDS: ENOXAPARIN 40 MG/0.4 ML SQ SCH (19:55)
[2024-06-25] MEDS: CIPROFLOXACIN 400mg IV 400 MG/200 ML BAG IV SCH (22:09)
[2024-06-25 23:10] VITALS: O2SAT 96
[2024-06-26 05:20] LABS: Absolute Eosinophils 0.3 K/uL (0-0.5); Absolute Lymphocytes (CBC) 2.6 K/uL (0.7-4.9); Absolute Monocytes 0.5 K/uL (0.1-1.3); Basophils % 0.5 % (0-1.3); Eosinophils % 3.5 % (0-4.4); Hematocrit 38.5 % (36.0-45.0); Hemoglobin 13.2 g/dL (12.0-15.0); Lymphocytes % 35.5 % (15.3-44.8); MCH 31.2 pg (27.0-35.0); MCHC 34.3 g/dL (32.0-36.0); MCV 91.1 fL (80-100); MPV 8.5 fL (7.6-11.3); Monocytes % 6.4 % (3.3-12.3); Neutrophils % 54.1 % (41.7-73.7); Nucleated Red Blood Cells % 0.2 % (0-0); Platelets 257 thou/uL (152-406); RBC Red Blood Cell Count 4.22 M/uL (3.86-4.86); Red Cell Distribution Width 13.8 % (12.1-15.2)
[2024-06-26 05:28] LABS: ALT/SGPT 23 U/L (13-56); Albumin 3.2 g/dL (3.4-5.0); Albumin/Globulin Ratio 0.9 (1.1-1.8); Alkaline Phosphatase 68 U/L (45-117); Anion Gap 5.4 mEq/L (5.0-15.0); BUN Blood Urea Nitrogen 9 mg/dL (7-18); Bicarbonate 28 mEq/L (21-32); Bilirubin Total 0.7 mg/dL (0.2-1.0); Globulin 3.5 g/dL (2.3-3.5); Glomerular Filtration Rate 87 ml/min (=/>90); Glucose Level 102 mg/dL (74-106); Potassium 3.4 mEq/L (3.5-5.1); Protein, Total 6.7 g/dL (6.4-8.2); Sodium Level 139 mEq/L (136-145)
[2024-06-26 05:31] LABS: AST/SGOT < 10 U/L (15-37)
[2024-06-26] MEDS: POTASSIUM 25 MEQ EFFERV TAB PO ONE (08:47)
[2024-06-26 12:13] LABS: C.diff Antigen/Toxin Ag neg : Tox neg (NEG : NEG); CDIFF INTERNAL NEG CONTROL White Background (WHITE BKGD); STOOL CONSISTENCY Liquid/Semi-Solid
--- NOTE | 2024-06-26 14:37 | P.PN ---
Date of Service: 06/26/24 Subjective: Diarrhea improving Still having abdominal pain Well-controlled with pain medications Slightly improved from yesterday No acute events overnight ROS: 10 point ROS as noted above, otherwise negative Physical exam GEN: Alert, oriented, NAD HEENT: Normal conjunctiva, sclera anicteric CV: Regular rate and rhythm, no edema Pulm: Nonlabored respirations on room air ABD: Soft, mild generalized abdominal tenderness, worse in the upper abdomen, nondistended MSK: No joint tenderness Integumentary: No rashes Neuro: Normal speech, normal affect Vitals reviewed Assessment: Ileitis/abdominal tenderness Diarrhea Hypokalemia Plan: Ileitis/abdominal tenderness Diarrhea Continue antibiotics Cipro/Flagyl Continue IV fluids As needed pain medications and antiemetics Stool culture, C. difficile test ordered Slowly improving Hypokalemia Protocols in place DVT PPX: Lovenox Code status: Full Discharge Plan: Home Plan to discharge in: 48 Hours Time Spent Managing Pts Care (In Minutes): 35
[2024-06-26] MEDS: CHOLESTYRAMINE/ASP 4 GM/PKT PO SCH (19:19)
[2024-06-26 20:25] VITALS: BMI 31.9
[2024-06-26] MEDS: CHOLESTYRAMINE/ASP 4 GM/PKT PO ONE (22:14)
--- NOTE | 2024-06-26 22:30 | CON ---
Date of Consultation: 06/26/2024 Reason For Consultation: Abdominal pain with change in bowel habits, diarrhea, with CT revealing ent eritis. History Of Present Illness: This patient is a 69-year-old female with history of hypertensi on, hypothyroidism, hysterectomy, bilateral salpingo-oophorectomy. The patient presented to hospital with a 2-day history of abdominal pain, change in bowel habits, diarrhea. The patient states she wa s in usual state of health on Saturday, 3 days ago when she ate a turkey and some cheese sandwich from [employer]. 5 hours later, she began having midepigastric pain with diarrhea and then progressed to g eneralized abdominal pain increased to a level of 10/10 cc, so she decided to come to the hospital fo r further evaluation and care. Since that time on Saturday, today being Saturday, patient continued to suffer from the pain and diarrhea. She is better now in the hospital, on IV fluids, IV antibiotics, p.r.n. pain medicines, and antiemetics. The patient states she is sure that this all started 5 hours after eating a turkey, sandwich with cheese. Unsure if she had mayonnaise or other things on the [facility], but notes that it is probably inciting event. Past Medical History: Significant for hypertension, hypothyroidism, hysterectomy. Medications At Home: Only vitamin D. She does not take medicines for hypertension, hypothyroid. Primary Care Physician: Does not have a primary care physician. Son at bedside states that he is going to change that, make sure she gets seen by primary care physic mora. Social History: , 3 children. No tobacco. No alcohol. At bedside, her oldest child is a s on who is taking active part in her healthcare. Family History: Father of lung cancer, tobacco smoker. Mother of lung cancer, was not tob acco smoker, but has secondhand smoke it appears. The patient was at home with her parents until the age of 19 when she left it appears, possibly from marriage. Medicines: Vitamin D. Allergies: NKDA. Review of Systems: The patient had midepigastric distended and generalized abdominal pain with change in bowel habits, d iarrhea. She denies any fevers, chills, night sweats, constipation, melena, hematochezia, hematemesi s, coffee-grounds emesis, hematuria, dysuria, polydipsia, chest pain, shortness of breath, seizure, s yncope, muscle aches, joint aches, backaches. Physical Examination: Vital Signs: The patient is 5 feet, 486 pounds. BMI of 32.1 kg/sq m. She has temperature of 97.6 d egrees Fahrenheit, pulse 60, respirations 16, blood pressure 130/61, O2 sat 94%. General: She is a well-nourished, well-developed, obese female, lying in bed, in no acute distress. HEENT: Normocephalic, atraumatic. Anicteric. Pupils equal, round, and reactive to light. Extraocu lar movements are intact. Oropharynx clear. Neck: Supple. No masses. Respirations: Clear to auscultation bilaterally. Cardiac: Regular rate and rhythm. No gallops or rubs. Abdomen: Positive bowel sounds. Soft, nondistended. Mild tenderness. No guarding or rebound. No peritoneal or Guthrie sign. Tenderness mainly in midepigastric area and generalized. Extremities: No clubbing, cyanosis, or edema. 2+ pulses. Neuro: Alert and oriented x3. Grossly nonfocal. 5/5 motor. Sensation to light touch. Laboratory Data: The patient has a white count of 7.4, down from 10.9 yesterday; hemoglobin of 13.2; hematocrit 38.5; MCV 91; platelet count 257; polys of 54%; lymphocytes 32%; monocytes 6%; eosinophil s 4%. Sodium 139, potassium 3.4, chloride 109, bicarb 28, BUN 9, creatinine of 0.8, glucose 102, mikey cium 8.4. Magnesium 2.0. Total bilirubin 0.7, AST of less than 10, ALT 23, alkaline phosphatase 68, total protein 6.7, albumin 3.2, lipase 25. UA was negative. Serologies: C difficile toxin negativ e on . Stool culture is pending. CT abdomen and pelvis reveals inflammation of the ileum, espec ially in the terminal ileum with small lymph nodes noted around the terminal ileum as well as inflame d. Mild free fluid in the right lower quadrant as well. Impression: 1.Enteritis, probably infectious or food poisoning since the patient started having symptoms 5 hours after eating turkey and cheese sandwich at [employer]. Other etiologies in the differential include i nflammatory bowel disease or other. CT scan revealed inflammation of the terminal ileum with surroun ding inflamed small lymph nodes and fluid, specially with inflammation most notable in the terminal i leum. This has been 3 days so far. 2.History of hypertension. 3.Hypothyroidism. 4.Total abdominal hysterectomy. 5.Bilateral salpingo-oophorectomy in the past. Recommendations: 1.Check stool studies, which have been done. C difficile is negative with stool cultures pending. We will await this. 2.Continue IV fluids, IV antibiotics. 3.Continue p.r.n. pain medicines and antiemetics. 4.Advance diet from clear liquids, full liquids to GI soft. 5.Consider IBD panel, especially if the patient does not improve with supportive care so far. The p atevan also needs screening colonoscopy as outpatient as she has never had a colonoscopy or colon can cer screening today and she is supposed to find a primary care physician upon discharge as well. SHASHI/ETHAN Voice ID: [id number] Report ID: [id number]
[2024-06-27 06:10] LABS: Absolute Basophils 0.1 K/uL (0-0.5); Absolute Eosinophils 0.3 K/uL (0-0.5); Absolute Lymphocytes (CBC) 2.1 K/uL (0.7-4.9); Absolute Monocytes 0.4 K/uL (0.1-1.3); Absolute Neutrophil 3.8 K/uL (1.8-8.0); Eosinophils % 4.4 % (0-4.4); Hematocrit 37.8 % (36.0-45.0); Hemoglobin 12.8 g/dL (12.0-15.0); Lymphocytes % 32.1 % (15.3-44.8); MCH 30.7 pg (27.0-35.0); MCHC 33.9 g/dL (32.0-36.0); MCV 90.8 fL (80-100); MPV 7.9 fL (7.6-11.3); Monocytes % 5.5 % (3.3-12.3); Nucleated Red Blood Cells % 0.1 % (0-0); Platelets 262 thou/uL (152-406); RBC Red Blood Cell Count 4.16 M/uL (3.86-4.86); Red Cell Distribution Width 13.9 % (12.1-15.2)
[2024-06-27 06:29] LABS: Albumin 3.3 g/dL (3.4-5.0); Albumin/Globulin Ratio 0.9 (1.1-1.8); Anion Gap 4.7 mEq/L (5.0-15.0); Bilirubin Total 0.5 mg/dL (0.2-1.0); Globulin 3.6 g/dL (2.3-3.5); Magnesium 2.1 mg/dL (1.6-2.4); Potassium 3.7 mEq/L (3.5-5.1); Protein, Total 6.9 g/dL (6.4-8.2)
[2024-06-27] MEDS ORDERED: CHOLESTYRAMINE/ASP 4 GM/PKT PO SCH (08:00)
[2024-06-27 12:13] VITALS: BP 157/91; TEMP 97.3
--- NOTE | 2024-06-27 14:05 | P.PN ---
Subjective Date of Service: 06/27/24 Chief Complaint: Ileitis, enteritis after eaten turkey cheese sandwich with NICHOL>general abd Subjective: Improving (Her NICHOL>general abdominal pain and diarrhea have resolved. She feels well and wants to go home.) Review of Systems Unremarkable Physical Examination - Vital Signs Temperature: 97.3 F Blood Pressure: 157/91 Pulse: 62 Respirations: 16 Pulse Ox (%): 94 - Physical Exam General: Alert, In no apparent distress, Oriented x3, Cooperative HEENT: Atraumatic, Normocephalic, PERRLA, EOMI Neck: Supple Respiratory: Normal air movement Cardiovascular: Normal pulses Gastrointestinal: Soft and benign, No tenderness, No rebound, No guarding Neurological: Normal speech, Normal strength at 5/5 x4 extr Assessment And Plan - Current Problems (Diagnosis) (1) Enteritis Current Visit: Yes Status: Acute Comment: After eating turkey cheese sandwich from [employer] 4 days ago -> has resolved with supportive care. (2) Epigastric abdominal pain Current Visit: Yes Status: Acute (3) Generalized abdominal pain Current Visit: Yes Status: Acute (4) Change in bowel habits Current Visit: Yes Status: Acute (5) Diarrhea Current Visit: Yes Status: Acute - Plan REC: 1) can discharge 2) outpatient screening colonoscopy (never done) 3) son to take her for primary care appointment (no PCP)
--- NOTE | 2024-06-27 14:36 | P.DS ---
Admission Date: 06/25/24 Discharge Date: 06/27/24 Disposition: ROUTINE DISCHARGE Discharge Condition: GOOD Reason for Admission: Ileitis, enteritis after eaten turkey cheese sandwich with NICHOL>general abd Brief History of Present Illness: 69-year-old otherwise healthy female presented to the emergency department with chief complaint of abdominal pain, diarrhea. Her symptoms started 2 days ago, she has had around 10 episodes of diarrhea daily for the last 2 days, denies any nausea or vomiting. She has been having generalized abdominal pain as well. Patient was evaluated in the emergency department her labs are significant for white blood cell count of 10.[address] showed moderately thickened and inflamed appearance of the ileum including the terminal ileum. This most likely represent enteritis or inflammatory bowel disease. Sigmoid diverticulosis without diverticulitis. ED prior wishes to admit patient for further evaluation and management. Hospital Course: Assessment: Ileitis/abdominal tenderness Diarrhea Hypokalemia Patient was admitted to the hospital for abdominal pain, diarrhea. Blood cell count was normal. CT of the abdomen pelvis with IV contrast showed moderately thickened and inflamed appearance of the ileum including the terminal ileum. This most likely represents enteritis or inflammatory bowel disease. Sigmoid diverticulosis without diverticulitis. Patient was admitted to the hospital given her ongoing abdominal pain and diarrhea, she was treated with IV fluids and IV antibiotics and had significant improvement in her symptoms. She is currently pain-free today and has not had diarrhea since she was admitted. She stable for discharge and outpatient follow-up. She was seen by GI who recommends outpatient follow-up for colonoscopy as she has not had one yet. Please follow-up with your primary care doctor in 1 to 2 weeks Follow-up with [facility] to arrange for outpatient colonoscopy in 4 to 6 weeks Vital Signs/Physical Exam: Temp Pulse Resp BP Pulse Ox 97.3 F 62 16 157/91 H 94 06/27/24 14:05 06/27/24 14:05 06/27/24 14:05 06/27/24 14:05 06/27/24 14:05 General: Alert, In no apparent distress, Oriented x3 HEENT: Atraumatic, PERRLA Neck: Supple, JVD not distended Respiratory: Clear to auscultation bilaterally, Normal air movement Cardiovascular: Regular rate/rhythm, Normal S1 S2 Gastrointestinal: Normal bowel sounds, No tenderness Musculoskeletal: No tenderness Integumentary: No rashes Neurological: Normal speech, Normal tone, Normal affect Lymphatics: No axilla or inguinal lymphadenopathy Laboratory Data at Discharge: WBC 6.60 thou/uL (4.3-10.9) 06/27/24 06:00 Hgb 12.8 g/dL (12.0-15.0) 06/27/24 06:00 Hct 37.8 % (36.0-45.0) 06/27/24 06:00 Plt Count 262 thou/uL (152-406) 06/27/24 06:00 Sodium 139 mEq/L (136-145) 06/27/24 06:00 Potassium 3.7 mEq/L (3.5-5.1) 06/27/24 06:00 BUN 5 mg/dL (7-18) L 06/27/24 06:00 Creatinine 0.86 mg/dL (0.55-1.02) 06/27/24 06:00 Glucose 108 mg/dL (74-106) H 06/27/24 06:00 Magnesium 2.1 mg/dL (1.6-2.4) 06/27/24 06:00 Total Bilirubin 0.5 mg/dL (0.2-1.0) 06/27/24 06:00 AST 15 U/L (15-37) 06/27/24 06:00 ALT 24 U/L (13-56) 06/27/24 06:00 Alkaline Phosphatase 71 U/L (45-117) 06/27/24 06:00 Lipase 25 U/L (13-75) 06/25/24 12:15 Home Medications: Ciprofloxacin HCl 500 mg PO BID #10 tab 06/27/24 metroNIDAZOLE [Flagyl] 500 mg PO Q8H 5 Days #15 tab 06/27/24 New Medications: Ciprofloxacin HCl 500 mg PO BID #10 tab metroNIDAZOLE [Flagyl] 500 mg PO Q8H 5 Days #15 tab Physician Discharge Instructions: Patient was admitted to the hospital for abdominal pain, diarrhea. Blood cell count was normal. CT of the abdomen pelvis with IV contrast showed moderately thickened and inflamed appearance of the ileum including the terminal ileum. This most likely represents enteritis or inflammatory bowel disease. Sigmoid diverticulosis without diverticulitis. Patient was admitted to the hospital given her ongoing abdominal pain and diarrhea, she was treated with IV fluids and IV antibiotics and had significant improvement in her symptoms. She is currently pain-free today and has not had diarrhea since she was admitted. She stable for discharge and outpatient follow-up. She was seen by GI who recommends outpatient follow-up for colonoscopy as she has not had one yet. Please follow-up with your primary care doctor in 1 to 2 weeks Follow-up with [facility] to arrange for outpatient colonoscopy in 4 to 6 weeks Diet: Gi soft Activity: Ad teofilo Followup: NONE,NONE [Primary Care Provider] - Isaias Ya MD [ASSOCIATE-ACTIVE - CAN ADMIT] - 1-2 Weeks Time spent managing pt's care (in minutes): 40
== END 2024-06-27 14:55 | disposition home or self-care (01) | DRG 392 ==
LOC: ER 11:52 → ERHOLD 15:23 → 2ND 20:04
PROVIDERS: ADMIT Hospitalist; ATTEND Hospitalist
DX: A08.39 Other viral enteritis (principal); E87.6 Hypokalemia; E03.9 Hypothyroidism, unspecified; I10 Essential (primary) hypertension; K57.30 Diverticulosis of large intestine without perforation or abscess without bleeding; Z79.899 Other long term (current) drug therapy; Z90.710 Acquired absence of both cervix and uterus
CPT/HCPCS: 36415; 74177; 80053; 81001; 83690; 83735; 85025; 87045; 87046; 87324; 96361; 96365; 96375; 99285; J0744; J1650; J2270; J2405; J3480; J7030; Q9967